=== PATIENT | male | born 1985 ===

== ENCOUNTER 2021-04-12 02:46 | Emergency (ER) | payer MEDICAID ==
[~2021-04-12] VITALS: Ht 177.8 cm; Wt 86.2 kg
[2021-04-12 02:50] VITALS: BP 141/86
== END 2021-04-12 03:14 | disposition left against medical advice (07) ==
LOC: ER 02:46
DX: H57.11 Ocular pain, right eye (principal); Z53.21 Procedure and treatment not carried out due to patient leaving prior to being seen by health care provider